=== PATIENT | female | born 1955 | race Caucasian/White ===

== ENCOUNTER 2016-04-27 15:43 | Observation (INO) ==
[2016-04-27] MEDS ORDERED: Aspirin 81 MG TAB.CHEW PO ONE (15:58)
[2016-04-27] MEDS ORDERED: Ipratropium/Albuterol Neb 3 ML IH ONE (15:58)
[2016-04-27] MEDS ORDERED: Nitroglycerin 0.4 MG TAB.SUBL SL STA (15:59)
--- NOTE | 2016-04-27 16:14 | Emergency Department Note ---
Disposition Clinical Impression: Chest pain Disposition: Admitted As Inpatient Condition: Good Referrals: José Curtis MD [Primary Care Provider] - Forms: ED Satisfaction Letter Chest Pain HPI - General Chief Complaint: ED Chest Pain Stated Complaint: chest pains Time Seen by Provider: 04/27/16 15:48 Source: patient Mode of arrival: ambulatory Limitations: no limitations Vital Signs Reviewed: Yes Nursing Notes Reviewed: Yes - History of Present Illness HPI Narrative: 61-year-old female presents with follow-up right-sided sharp chest pain that radiates to the right that was associated with doing chores today. She states that she has been having similar milder episodes over the last few days with [employer], but they have remitted with rest each time. Today, her symptoms did not remit despite rest so she took her sister's nitroglycerin tablet. This immediately remitted her symptoms, but they recurred after about 30 minutes so she came in for evaluation. In addition to the chest pain, she admits to shortness of breath increased over her baseline. She denies pleuritic symptoms. She does admit to COPD, but denies productive cough or wheezing significantly over her baseline. She admits to history of prior colon cancer, but denies cancer treatment at this time and states that she is in remission. She denies recent hospitalization or mobilization or travel. She denies hemoptysis. She denies known history of coronary artery disease, but denies prior heart catheter or stress test. Pt complaint: chest pain Severity scale (1-10): 7 - Related Data Home Medications Medication Instructions Recorded Confirmed Fluticasone Propionate Nasal 1 spray NS DAILY PRN #0 01/28/15 01/28/16 [Flonase] Tiotropium [Spiriva] 1 puff IH DAILY #0 01/28/15 01/28/16 Fluticasone/Salmeterol [Advair Hfa 1 puff IH BID PRN 03/06/15 01/28/16 115-21 Mcg Inhaler] Albuterol Sulfate [Proair Hfa] 2 puff IH Q4H PRN 01/28/16 01/28/16 Atorvastatin [Lipitor] 10 mg PO HS 01/28/16 01/28/16 Guaifenesin [Mucinex] 600 mg PO BID 01/28/16 01/28/16 Lisinopril/Hydrochlorothiazide 1 tab PO DAILY 01/28/16 01/28/16 [Zestoretic 10-12.5 mg Tablet] Loratadine [Allergy Relief] 10 mg PO DAILY 01/28/16 01/28/16 OxyCODONE/APAP [Percocet 1 tab PO Q6HR 01/28/16 01/28/16 [id number]] Ubidecarenone [Co Q10] 100 mg PO DAILY 01/28/16 01/28/16 Pantoprazole Sodium [Protonix] 40 mg PO DAILY 04/27/16 04/27/16 Previous Rx's Medication Instructions Recorded Docusate [Colace] 100 mg PO BID #60 capsule 03/11/15 Ipratropium/Albuterol Neb [Duoneb] 3 ml IH Q6HR #120 vial.neb 03/11/15 Allergies Allergy/AdvReac Type Severity Reaction Status Date / Time aspirin AdvReac Nausea Verified 01/28/15 10:52 hydrocodone [From Vicodin] AdvReac Vomiting Verified 01/28/15 10:52 All systems ED: reviewed and negative except as stated. Chest Pain PMH - Past Medical History Medical history: Reports: asthma, cancer, COPD, GERD, hypertension, seizures Surgical history: Reports: colectomy, hysterectomy Psychiatric history: Reports: no psych history - Social History Smoking Status: Current every day smoker Alcohol use: Reports: none Drug use: Reports: none Physical Exam - Head Head exam: atraumatic, normocephalic, normal inspection - Eye Eye exam: Present: normal appearance, PERRL, EOMI - ENT ENT exam: normal exam, normal oropharynx, mucous membranes moist - Neck Neck exam: Present: normal inspection, full ROM, trachea midline - Chest Chest inspection: Present: normal inspection, symmetric chest wall rise - Respiratory Mild diffuse wheezing with good air movement. No respiratory distress. Cardiovascular Cardiovascular exam: Present: regular rate, normal rhythm, normal heart sounds - Abdominal Exam Abdominal exam: Present: soft, Non-Tender. Absent: tenderness, distention, guarding, rebound, rigidity - Extremities Exam Extremities exam: Present: normal inspection, full ROM - Expanded Lower Extremity Exam Hip/Pelvis exam: Present: normal inspection, full ROM - Back Exam Back exam: Present: normal inspection, full ROM. Absent: tenderness, CVA tenderness (R), CVA tenderness (L) - Neurological Exam Neurological exam: Present: alert, oriented X3, CN II-XII intact - Psychiatric Psychiatric exam: Present: normal affect, normal mood - Skin Skin exam: Present: warm, dry, intact, normal color - General Limitations: no limitations General appearance: alert, anxious Course - Reevaluation(s) Reevaluation #1: Troponin is negative. D-dimer is negative. Patient is chest pain-free at this time, but given her very concerning story we will need to admit her for suspected unstable angina. Except by Dr. Ling. Time: 17:19 Vital Signs Temperature 97.2 F L 04/27/16 15:44 Pulse Rate 120 04/27/16 15:44 Respiratory Rate 24 04/27/16 15:44 Blood Pressure 128/80 04/27/16 15:44 O2 Sat by Pulse Oximetry 93 L 04/27/16 15:44 Temperature 97.2 F L 04/27/16 15:44 Pulse Rate 120 04/27/16 15:44 Respiratory Rate 24 04/27/16 15:44 Blood Pressure 128/80 04/27/16 15:44 O2 Sat by Pulse Oximetry 93 L 04/27/16 15:44 Oxygen Delivery Oxygen Delivery Room Air Chest Pain - Lab Data Lab results reviewed: Yes I reviewed the patient's lab results. Result diagrams: 04/27/16 16:15 04/27/16 16:15 Lab Results 04/27/16 04/27/16 04/27/16 Range/Units 16:15 16:15 16:15 WBC 12.0 H (4.3-11.1) K/mcL RBC 5.22 H (3.82-4.97) M/mcL Hgb 15.0 (11.5-15.4) g/dL Hct 48.2 H (35.3-44.9) % MCV 92.3 (83.0-100.0) fL MCH 28.7 (28.0-33.3) pg MCHC 31.1 L (31.6-35.5) g/dL RDW 15.2 H (11.5-14.5) % Plt Count 326 (140-400) K/mcL MPV 10.7 (9.4-12.4) fL Immature Gran % 0.8 (0-4) % Seg Neutrophils % 64.4 % Lymphocytes % 25.0 % Monocytes % 6.3 % Eosinophils % 2.8 % Basophils % 0.7 % Neutrophils # 7.7 (1.6-8.9) K/mcL Lymphocytes # 3.0 (0.6-4.6) K/mcL Monocytes # 0.8 (0.0-1.3) K/mcL Eosinophils # 0.3 (0.0-0.6) K/mcL Basophils # 0.1 (0.0-0.2) K/mcL D-Dimer (0-500) ng/mLFEU Sodium 139 (136-145) mEq/L Potassium 4.2 (3.5-4.5) mEq/L Chloride 101 (98-109) mEq/L Carbon Dioxide 27 (19-29) mEq/L BUN 11 (7-20) mg/dL Creatinine 0.87 (0.57-1.11) mg/dL Est GFR ( Amer) > 60 (> 60) Est GFR (Non-Af Amer) > 60 (> 60) BUN/Creatinine Ratio 13 (6-26) Glucose 90 (70-99) mg/dL Calculated Osmolality 287 (280-300) Calcium 9.8 (8.6-10.8) mg/dL Troponin I 0.00 (0-0.03) ng/mL 04/27/16 Range/Units 16:15 WBC (4.3-11.1) K/mcL RBC (3.82-4.97) M/mcL Hgb (11.5-15.4) g/dL Hct (35.3-44.9) % MCV (83.0-100.0) fL MCH (28.0-33.3) pg MCHC (31.6-35.5) g/dL RDW (11.5-14.5) % Plt Count (140-400) K/mcL MPV (9.4-12.4) fL Immature Gran % (0-4) % Seg Neutrophils % % Lymphocytes % % Monocytes % % Eosinophils % % Basophils % % Neutrophils # (1.6-8.9) K/mcL Lymphocytes # (0.6-4.6) K/mcL Monocytes # (0.0-1.3) K/mcL Eosinophils # (0.0-0.6) K/mcL Basophils # (0.0-0.2) K/mcL D-Dimer 268 (0-500) ng/mLFEU Sodium (136-145) mEq/L Potassium (3.5-4.5) mEq/L Chloride (98-109) mEq/L Carbon Dioxide (19-29) mEq/L BUN (7-20) mg/dL Creatinine (0.57-1.11) mg/dL Est GFR ( Amer) (> 60) Est GFR (Non-Af Amer) (> 60) BUN/Creatinine Ratio (6-26) Glucose (70-99) mg/dL Calculated Osmolality (280-300) Calcium (8.6-10.8) mg/dL Troponin I (0-0.03) ng/mL - EKG Data EKG attestation: Yes I reviewed and interpreted this EKG. EKG results narrative: Sinus tachycardia at 106 with normal axis and intervals. No ST elevation, but there is one box of ST depression in V3 and V4 and slight ST depression in V5. These changes are new compared with 09/11/2014. Posterior EKG was performed and does not show any elevation.
[2016-04-27 16:23] LABS: Basophils # 0.1 K/mcL (0.0-0.2); Basophils % 0.7 %; Eosinophils # 0.3 K/mcL (0.0-0.6); Eosinophils % 2.8 %; Hematocrit 48.2 % (35.3-44.9); Immature Granulocytes % 0.8 % (0-4); Mean Corpuscular HGB Conc 31.1 g/dL (31.6-35.5); Mean Corpuscular Hemoglobin 28.7 pg (28.0-33.3); Mean Corpuscular Volume 92.3 fL (83.0-100.0); Mean Platelet Volume 10.7 fL (9.4-12.4); Monocytes # 0.8 K/mcL (0.0-1.3); Monocytes % 6.3 %; Neutrophils # 7.7 K/mcL (1.6-8.9); Platelet Count 326 K/mcL (140-400); Red Blood Count 5.22 M/mcL (3.82-4.97); Red Cell Distribution Width 15.2 % (11.5-14.5); Segmented Neutrophils % 64.4 %
--- NOTE | 2016-04-27 16:31 | Emergency Department Note ---
Disposition Clinical Impression: Chest pain Disposition: Admitted As Inpatient Condition: Good General Adult HPI - General Chief complaint: ED Chest Pain Stated complaint: chest pains Time Seen by Provider: 04/27/16 15:48 Source: patient Mode of arrival: ambulatory Limitations: no limitations - History of Present Illness Pain Scale: 7 - Related Data Home Medications Medication Instructions Recorded Confirmed Fluticasone Propionate Nasal 1 spray NS DAILY PRN #0 01/28/15 04/27/16 [Flonase] Tiotropium [Spiriva] 1 puff IH DAILY #0 01/28/15 04/27/16 Fluticasone/Salmeterol [Advair Hfa 1 puff IH BID PRN 03/06/15 04/27/16 115-21 Mcg Inhaler] Albuterol Sulfate [Proair Hfa] 2 puff IH Q4H PRN 01/28/16 04/27/16 Atorvastatin [Lipitor] 10 mg PO HS 01/28/16 04/27/16 Guaifenesin [Mucinex] 600 mg PO BID 01/28/16 04/27/16 Lisinopril/Hydrochlorothiazide 1 tab PO DAILY 01/28/16 04/27/16 [Zestoretic 10-12.5 mg Tablet] Loratadine [Allergy Relief] 10 mg PO DAILY 01/28/16 04/27/16 OxyCODONE/APAP 10/325 [Percocet 1 tab PO TID PRN 01/28/16 04/27/16 10/325] Ubidecarenone [Co Q10] 100 mg PO DAILY 01/28/16 04/27/16 Pantoprazole Sodium [Protonix] 40 mg PO DAILY 04/27/16 04/27/16 Previous Rx's Medication Instructions Recorded Docusate [Colace] 100 mg PO BID #60 capsule 03/11/15 Ipratropium/Albuterol Neb [Duoneb] 3 ml IH Q6HR #120 vial.neb 03/11/15 Allergies Allergy/AdvReac Type Severity Reaction Status Date / Time aspirin AdvReac Nausea Verified 01/28/15 10:52 hydrocodone [From Vicodin] AdvReac Vomiting Verified 01/28/15 10:52 Past Medical History - Past Medical History Medical history: Reports: asthma, cancer, COPD, GERD, hypertension, seizures Surgical history: Reports: colectomy, hysterectomy Psychiatric history: Reports: no psych history - Social History Smoking Status: Current every day smoker Smokeless Tobacco Status: No Alcohol use: Reports: none Drug use: Reports: none Physical Exam - General Limitations: no limitations General appearance: alert, anxious Course - Reevaluation(s) Reevaluation #1: I saw the patient with the resident, Dr. Koch. The patient presents with chest discomfort that has been going on since . It is intermittent chest discomfort that comes on every time she exerts herself. It is associated with shortness of breath and diaphoresis and nausea. It goes away with rest. The frequency and intensity adhesive reproduction have been increasing. She notes it particularly bad over the last several days. That story sounds like unstable angina. Her EKG does not show ischemic changes at this time. During my evaluation she is pain-free. We are going to do a cardiac workup because that is what sounds like. We will also check for other possible issues. She will need to be admitted to the hospital. Time: 16:31 Vital Signs Temperature 97.2 F L 04/27/16 15:44 Pulse Rate 120 04/27/16 15:44 Respiratory Rate 24 04/27/16 15:44 Blood Pressure 128/80 04/27/16 15:44 O2 Sat by Pulse Oximetry 93 L 04/27/16 15:44 Temperature 98.0 F 04/27/16 19:32 Pulse Rate 93 04/27/16 19:32 Respiratory Rate 20 04/27/16 19:32 Blood Pressure 114/74 04/27/16 19:32 O2 Sat by Pulse Oximetry 94 L 04/27/16 19:32 Oxygen Delivery Oxygen Delivery Room Air Medical Decision Making - Lab Data Result diagrams: 04/27/16 16:15 04/27/16 16:15 Lab Results 04/27/16 04/27/16 04/27/16 Range/Units 16:15 16:15 16:15 WBC 12.0 H (4.3-11.1) K/mcL RBC 5.22 H (3.82-4.97) M/mcL Hgb 15.0 (11.5-15.4) g/dL Hct 48.2 H (35.3-44.9) % MCV 92.3 (83.0-100.0) fL MCH 28.7 (28.0-33.3) pg MCHC 31.1 L (31.6-35.5) g/dL RDW 15.2 H (11.5-14.5) % Plt Count 326 (140-400) K/mcL MPV 10.7 (9.4-12.4) fL Immature Gran % 0.8 (0-4) % Seg Neutrophils % 64.4 % Lymphocytes % 25.0 % Monocytes % 6.3 % Eosinophils % 2.8 % Basophils % 0.7 % Neutrophils # 7.7 (1.6-8.9) K/mcL Lymphocytes # 3.0 (0.6-4.6) K/mcL Monocytes # 0.8 (0.0-1.3) K/mcL Eosinophils # 0.3 (0.0-0.6) K/mcL Basophils # 0.1 (0.0-0.2) K/mcL D-Dimer (0-500) ng/mLFEU Sodium 139 (136-145) mEq/L Potassium 4.2 (3.5-4.5) mEq/L Chloride 101 (98-109) mEq/L Carbon Dioxide 27 (19-29) mEq/L BUN 11 (7-20) mg/dL Creatinine 0.87 (0.57-1.11) mg/dL Est GFR ( Amer) > 60 (> 60) Est GFR (Non-Af Amer) > 60 (> 60) BUN/Creatinine Ratio 13 (6-26) Glucose 90 (70-99) mg/dL Calculated Osmolality 287 (280-300) Calcium 9.8 (8.6-10.8) mg/dL Troponin I 0.00 (0-0.03) ng/mL 04/27/16 Range/Units 16:15 WBC (4.3-11.1) K/mcL RBC (3.82-4.97) M/mcL Hgb (11.5-15.4) g/dL Hct (35.3-44.9) % MCV (83.0-100.0) fL MCH (28.0-33.3) pg MCHC (31.6-35.5) g/dL RDW (11.5-14.5) % Plt Count (140-400) K/mcL MPV (9.4-12.4) fL Immature Gran % (0-4) % Seg Neutrophils % % Lymphocytes % % Monocytes % % Eosinophils % % Basophils % % Neutrophils # (1.6-8.9) K/mcL Lymphocytes # (0.6-4.6) K/mcL Monocytes # (0.0-1.3) K/mcL Eosinophils # (0.0-0.6) K/mcL Basophils # (0.0-0.2) K/mcL D-Dimer 268 (0-500) ng/mLFEU Sodium (136-145) mEq/L Potassium (3.5-4.5) mEq/L Chloride (98-109) mEq/L Carbon Dioxide (19-29) mEq/L BUN (7-20) mg/dL Creatinine (0.57-1.11) mg/dL Est GFR ( Amer) (> 60) Est GFR (Non-Af Amer) (> 60) BUN/Creatinine Ratio (6-26) Glucose (70-99) mg/dL Calculated Osmolality (280-300) Calcium (8.6-10.8) mg/dL Troponin I (0-0.03) ng/mL Attestation Statement - Attestation Attestation: I, Dr. Menon, examined this patient [id number] and my medical decision- making was reviewed with Dr. Koch, Resident Physician. I agree with the documented findings, disposition and treatment plan as described except to the extent set forth below. Please see my progress notes for details.
[2016-04-27 16:34] LABS: BUN/Creatinine Ratio 13 (6-26); Blood Urea Nitrogen 11 mg/dL (7-20); Calcium 9.8 mg/dL (8.6-10.8); Carbon Dioxide 27 mEq/L (19-29); Chloride 101 mEq/L (98-109); Glucose 90 mg/dL (70-99); Osmolality,Calculated 287 (280-300); Potassium 4.2 mEq/L (3.5-4.5); Sodium 139 mEq/L (136-145); eGFR For African Americans > 60 (> 60); eGFR For Non-African Americans > 60 (> 60)
[2016-04-27] MEDS ORDERED: Naloxone 0.4 MG/ML INJ IVP PRN (19:48)
[2016-04-27] MEDS ORDERED: Ondansetron 4 MG/2 ML VIAL IVP PRN (19:48)
[2016-04-27] MEDS ORDERED: Acetaminophen 325 MG TABLET PO PRN (19:48)
[2016-04-27] MEDS ORDERED: Nitroglycerin 0.4 MG TAB.SUBL SL PRN (19:52)
[2016-04-27] MEDS ORDERED: *HR* OxyCODONE/APAP 10/325 TABLET PO PRN (19:53)
[2016-04-27] MEDS ORDERED: Fluticasone Propionate Nasal 50 MCG/SPRAY BOTTLE NS PRN (19:53)
--- NOTE | 2016-04-27 20:49 | Internal Med History&Physical ---
<Zoraida Beard - Last Filed: 04/27/16 20:41> Date of Encounter: 04/27/16 Time of Encounter: 20:00 Assessment and Plan (1) Chest pain Status: Acute 1 patient has been experiencing chest pain on exertion relieved by rest and nitroglycerin. First cardiac troponin was negative we will continue to cycle troponins. 2 nitroglycerin and oxygen as needed, aspirin statin beta billie 3 continuous cardiac monitoring 4 obtain lipid profile as well as TSH 5 nothing by mouth after midnight-pharmacological cardiac stress 6 cardiac echo 7 consult cardiology as needed Qualifiers: Ischemic chest pain type: unstable angina pectoris Qualified Code(s): I20.0 - Unstable angina (2) Tobacco abuse Status: Acute 1 patient smokes half a pack cigarettes a day history of COPD with oxygen use encouraged patient to stop smoking and offered nicotine patch which patient declined (3) COPD (chronic obstructive pulmonary disease) Status: Chronic 1 history of COPD with oxygen use at night-we will continue with oxygen and maintain SPO2 greater than 92% 2 no exacerbation at this time-we will continue with bronchodilators Qualifiers: COPD type: unspecified COPD Qualified Code(s): J44.9 - Chronic obstructive pulmonary disease, unspecified (4) DVT prophylaxis Status: Acute 1 NELLIE hose and encourage early ambulation Internal Medicine - H&P: HPI Chief complaint: CP Admitted From: Home Plans for Post Hospital Care: Home History of present illness: Ms. Buchanan is a 61 year old female with a past medical history of COPD with oxygen use hyperlipidemia colon cancer GERD. According to the patient she has been experiencing chest pain since Tuesday. She describes the pain as gas-like midsternal radiates to back and down right arm. Associated symptoms are diaphoresis nausea shortness of breath the pain is aggravated by exertion and relieved with rest. She denies any fevers chills vomiting diarrhea abdominal pain. Today the patient continues to have chest pain on exertion she went to the grocery store and was unable to complete her shopping due to chest pain shortness of breath. She went home and called her sister and asked for nitroglycerin she took a nitroglycerin which immediately relieved her symptoms. However they reoccurred after about 30 minutes she came to the ER for evaluation in the ER first set of cardiac troponins are negative EKG sinus tach with some nonspecific ST changes chest x-ray no acute process the rest of her lab work is unremarkable. She was admitted for further workup and evaluation. Upon assessment patient denies any chest pain or shortness of breath at this time. The patient does state that she has had several family members with a history of coronary artery disease. She denies any past cardiac history and has not had a stress test or cardiac catheter in the past. I reviewed the case with Dr Rodrigues who agrees with plan Past Med Surg Social Fam HX - Past Medical History Medical history: asthma, cancer, COPD, GERD, hypertension, seizures Psychiatric history: no psych history - Past Surgical History Surgical History: colectomy, hysterectomy - Social History Smoking Status: Current every day smoker Smokeless Tobacco Status: No Alcohol use: none Drug use: none - Family History Mother Adopted: No Family Member Ethnicity: Non- Living Status: Still Living Hx Family Cardiac Disorders: Yes (open heart) Hx Family Respiratory Disorders: Yes Hx Family Cancer: No Hx Family GI Disorders: No Hx Family Endocrine Disorder: No Hx Family Neuromuscular Disorders: No Hx Family Neurologic Disorders: Yes Hx Family HEENT Disorders: No Hx Family Autoimmune Disorders: No Internal Medicine - H&P: Meds Fluticasone Propionate Nasal [Flonase] 1 spray NS DAILY PRN #0 01/28/15 [ History] Tiotropium [Spiriva] 1 puff IH DAILY #0 01/28/15 [History] Fluticasone/Salmeterol [Advair Hfa 115-21 Mcg Inhaler] 1 puff IH BID PRN [History] Docusate [Colace] 100 mg PO BID #60 capsule 03/11/15 [Rx] Ipratropium/Albuterol Neb [Duoneb] 3 ml IH Q6HR #120 vial.neb 03/11/15 [Rx] Albuterol Sulfate [Proair Hfa] 2 puff IH Q4H PRN 01/28/16 [History] Atorvastatin [Lipitor] 10 mg PO HS 01/28/16 [History] Guaifenesin [Mucinex] 600 mg PO BID 01/28/16 [History] Lisinopril/Hydrochlorothiazide [Zestoretic 10-12.5 mg Tablet] 1 tab PO DAILY [History] Loratadine [Allergy Relief] 10 mg PO DAILY 01/28/16 [History] OxyCODONE/APAP 10/325 [Percocet 10/325] 1 tab PO TID PRN 01/28/16 [History] Ubidecarenone [Co Q10] 100 mg PO DAILY 01/28/16 [History] Pantoprazole Sodium [Protonix] 40 mg PO DAILY 04/27/16 [History] Atorvastatin [Lipitor] 40 mg PO HS #30 tablet 04/28/16 [Rx] Allergies aspirin Adverse Reaction (Verified 01/28/15 10:52) Nausea hydrocodone [From Vicodin] Adverse Reaction (Verified 01/28/15 10:52) Vomiting All Systems PM: A 10-system review of systems was performed and is negative for pertinent findings except as documented above in the HPI. - Constitutional Constitutional: no chills, no fever(s), no night sweats - Cardiovascular Cardiovascular ROS IM: chest pain, dyspnea on exertion - Respiratory Respiratory: dyspnea on exertion - Gastrointestinal Gastrointestinal: nausea - Genitourinary Genitourinary: no change in urinary stream, no dysuria, no flank pain, no hematuria - Musculoskeletal Musculoskeletal ROS IM: no numbness, no tingling - Neurological Neurological ROS: no confusion, no convulsions, no focal weakness, no numbness, no tingling, no tremor(s) - Constitutional Vitals: Temp Pulse Resp BP Pulse Ox 98.0 F 93 20 114/74 94 L 04/27/16 19:32 04/27/16 19:32 04/27/16 19:32 04/27/16 19:32 04/27/16 19:32 General appearance: Present: answers questions appropriately - Head Head exam: Present: atraumatic, normocephalic - Neck Neck exam general surgery: Present: supple, trachea midline. Absent: lymphadenopathy - Respiratory Respiratory exam: Present: wheezes. Absent: accessory muscle use, rales, rhonchi Additional comments: Faint expiratory wheeze - Cardiovascular Cardiovascular exam: Present: RRR, +S1, +S2. Absent: diastolic murmur, gallop, rubs, systolic murmur - GI/Abdominal GI/Abdominal exam: Present: normal bowel sounds, soft, no peritoneal signs. Absent: distended, tenderness - Extremities Exam Extremities exam: Present: warm, radial pulses palpable and symetrical. Absent : calf tenderness, cyanotic, pedal edema - Neurological Exam Neurological exam: Present: CN II-XII intact, oriented X3, no focal deficits. Absent: pronater drift, facial droop, speech deficit Internal Med - H&P Results - Labs CBC & Chem 7: 04/27/16 16:15 04/27/16 16:15 - EKG Data EKG shows normal: sinus rhythm, ST-T waves - Impressions No ST elevation nonspecific ST changes, reviewed with Dr Rodrigues - Diagnostic Studies Chest x-ray Additional comments: per radiology read no acute process - VTE Reasons for not Prescribing Prophylaxis: Treatment not Indicated - Low risk for VTE <Anselmo Rodrigues - Last Filed: 04/29/16 11:20> Date of Encounter: 04/27/16 Internal Medicine - H&P: HPI History of present illness: Ms. Buchanan is a 61 year old female All Systems PM: A 10-system review of systems was performed and is negative for pertinent findings except as documented above in the HPI. - Constitutional Vitals: Temp Pulse Resp BP Pulse Ox 98.0 F 76 18 114/76 95 04/28/16 14:44 04/28/16 14:44 04/28/16 15:40 04/28/16 14:44 04/28/16 15:40 Internal Med - H&P Results - Labs CBC & Chem 7: 04/28/16 04:14 04/28/16 04:14 - Attending Attestation Medical decision-making was reviewed with the REAL ESTATE LOAN OFFICER and agree with the treatment plan
[2016-04-27] MEDS ORDERED: Budesonide/Formoterol 80/4.5 MDI IH SCH (21:00)
[2016-04-27] MEDS: Ipratropium/Albuterol Neb 3 ML IH SCH (23:04)
[2016-04-28] MEDS: Ipratropium/Albuterol Neb 3 ML IH SCH ×3 (04:19→15:40)
[2016-04-28 05:52] LABS: Basophils # 0.1 K/mcL (0.0-0.2); Basophils % 0.9 %; Eosinophils # 0.4 K/mcL (0.0-0.6); Eosinophils % 3.9 %; Hematocrit 47.2 % (35.3-44.9); Immature Granulocytes % 0.6 % (0-4); Lymphocytes # 3.8 K/mcL (0.6-4.6); Lymphocytes % 38.3 %; Mean Corpuscular HGB Conc 29.7 g/dL (31.6-35.5); Mean Corpuscular Hemoglobin 28.1 pg (28.0-33.3); Mean Corpuscular Volume 94.8 fL (83.0-100.0); Mean Platelet Volume 11.6 fL (9.4-12.4); Monocytes # 0.7 K/mcL (0.0-1.3); Monocytes % 6.8 %; Neutrophils # 4.9 K/mcL (1.6-8.9); Platelet Count 330 K/mcL (140-400); Red Blood Count 4.98 M/mcL (3.82-4.97); Red Cell Distribution Width 15.6 % (11.5-14.5); Segmented Neutrophils % 49.5 %
[2016-04-28 06:12] LABS: Chol/HDL Ratio 6.8 (0-4.9)
[2016-04-28 06:13] LABS: BUN/Creatinine Ratio 16 (6-26); Blood Urea Nitrogen 14 mg/dL (7-20); Calcium 9.3 mg/dL (8.6-10.8); Carbon Dioxide 28 mEq/L (19-29); Chloride 100 mEq/L (98-109); Glucose 103 mg/dL (70-99); Osmolality,Calculated 291 (280-300); Potassium 3.5 mEq/L (3.5-4.5); Sodium 140 mEq/L (136-145); eGFR For African Americans > 60 (> 60); eGFR For Non-African Americans > 60 (> 60)
[2016-04-28 06:27] LABS: Thyroid Stimulating Hormone 3.372 mcIU/mL (0.350-4.840)
[2016-04-28] MEDS ORDERED: Regadenoson 0.4 MG/5 ML SYRINGE IVP ONE (06:31)
[2016-04-28] MEDS ORDERED: UBIDECARENONE 100 MG PO SCH (09:00)
[2016-04-28] MEDS ORDERED: Loratadine 10 MG TABLET PO SCH (09:00)
[2016-04-28] MEDS ORDERED: Aspirin 81 MG TAB.CHEW PO SCH (09:00)
--- NOTE | 2016-04-28 10:25 | Electrocardiograph Report ---
[facility] Test Date: 2016-04-27 Pat Name: Teena Buchanan Department: 104 Room: 3B23 Gender: F Youth Minister: : 1955 Requested By: Wicho Koch Order Number: [id number] Reading MD: Giovanni Mercado MD Measurements Intervals [place] Rate: 106 P: 72 MS: 134 QRS: 54 QRSD: 82 T: 66 QT: 308 QTc: 370 Interpretive Statements SINUS TACHYCARDIA NONSPECIFIC ST \T\ T-WAVE ABNORMALITY Electronically Signed On 04-28-16 10:24:40 EST by Giovanni Mercado MD
--- NOTE | 2016-04-28 10:27 | Electrocardiograph Report ---
[facility] Test Date: 2016-04-27 Pat Name: Teena Buchanan Department: 104 Room: 3B23 Gender: F Die Casting Machine Setter: MARLENY : 1955 Requested By: Wicho Koch Order Number: [id number] Reading MD: Giovanni Mercado MD Measurements Intervals [place] Rate: 106 P: 66 [place]: 124 QRS: 53 QRSD: 85 T: 64 QT: 306 QTc: 368 Interpretive Statements SINUS TACHYCARDIA POOR R WAVE PROGRESSION Electronically Signed On 04-28-16 10:26:28 EST by Giovanni Mercado MD
--- NOTE | 2016-04-28 11:47 | Nuclear Medicine Stress Report ---
Regadenoson Nuclear Stress Name: Teena Buchanan Date of Study: 04/28/2016 Date: 1955 Ht: 60.0 in Medical Record#: [id number] Age: 61 Wt: 218.0 lb Gender: Female Order #: [id number] Location: [facility] Room: [facility] Supervising Provider: Micah Bartlett CNP Reading Physician: Omid Roth DO, JANNETH WELLS FASNC Ordering Physician: Penny Sibley CNP Primary Care Physician: José Curtis MD Stress Technologist: Yoli Do PROSTHETIC ASSISTANT, CCT Polisher Implant: Emmanuel La Indications: Chest Pain Impression: Pharmacologic stress ECG is negative for ischemia at level of heart rate achieved. Gated EF > 70%. Perfusion imaging was negative for ischemia or infarct. History: History of Smoking Stress Test Summary: Stress Test Type: Pharmacologic Regadenoson 0.4mg/5ml given IV Baseline Information: Initial Heart Rate: 69 Blood Pressure: 110/72 Stress Information: Test Terminated Due to (primary): As per protocol Maximum Blood Pressure: 118/64 Maximum Heart Rate: 104 Percent Maximum Heart Rate Achieved: 68 Double Product: [id number] METS Reached: 1 Symptoms: No chest symptoms Nuclear Summary: SPECT myocardial perfusion imaging using Tc99m Sestamibi given intravenously was performed at rest and following cardiac stress testing. The resting images were obtained following initial dose of 10.7 mCi. Following stress an additional dose of 32.2 mCi was given at peak exercise or 30 seconds post regadenoson infusion. Medication Given: Time Medication Dose Units Route Findings: Stress Note * Resting ECG demonstrated normal sinus rhythm. * No baseline arrhythmias were noted. * Pharmacologic stress ECG is negative for ischemia at level of heart rate achieved. * No arrhythmias were noted during stress. * Patient had no chest pain during stress. * Normal hemodynamic responses to pharmacologic stress. Study Quality * Study quality is average. Gated EF > 70% * Gated EF > 70%. Left Ventricle * The left ventricle is not dilated. LVEDV = 53 mL. NORMALS * Normal wall motion. * Normal segmental perfusion in stress. * Normal Segmental Perfusion in rest. TID * No evidence of transient ischemic dilatation. TID ratio = 1.09. Lung Uptake * There is no evidence of increase lung uptake. Updated by Omid Roth DO, FACJoselo, JANNETH, FASROSENDO on 04/28/2016 11:40:00 AM electronically signed on 04/28/2016 11:40:46 AM with status of Final
[2016-04-28] MEDS ORDERED: Perflutren Lipid Microsphere 1.3 ML in 0.9 % Sodium Chloride 8.7 ML IVP ONE (13:11)
[2016-04-28 14:46] VITALS: BP 114/76
--- NOTE | 2016-04-28 14:47 | ECHO - Doppler Report ---
Echo with Imaging Enhancement Agent Name: Teena Buchanan Date of Study: 04/28/2016 Date: 1955 Ht: 60.0 in Medical Record#: [id number] Age: 61 Wt: 173.0 lb Gender: Female BSA: 1.76 Order #: [id number] Location: [facility] Room #: [facility] Reading Physician: Omid Roth DO, RUSSELL, KATIE LAGUNAS Cake Press Operator Helper: Pablito Whittaker RDCS Ordering Physician: Zoraida Beard CNP Primary Physician: José Curtis MD Indications: Chest pain Impressions: LVEF 60-65%. Normal LV chamber size, wall thickness and function. Mild left ventricular diastolic dysfunction. Normal right ventricular structure and function. Unable to estimate RVSP due to lack of TR jet. No significant valvular dysfunction. Left Ventricular Wall Motion: Rest Echo Findings All wall segments showed normal motion. Findings: Study Quality * Technically adequate exam. ECG Findings * Normal sinus rhythm. Left Ventricle * LVEF 60-65%. * Normal LV chamber size, wall thickness and function. * Mild left ventricular diastolic dysfunction. Right Ventricle * Normal right ventricular structure and function. Left Atrium * Mildly dilated left atrium. Right Atrium * Normal right atrial size. Interatrial Septum * Interatrial septum not well evaluated. Aortic Valve * Aortic valve not well visualized. * No aortic regurgitation. * No aortic stenosis. Mitral Valve * Normal mitral valve structure and function. * No mitral regurgitation. * No mitral stenosis. Tricuspid Valve * Normal tricuspid valve structure and function. * Trace tricuspid regurgitation. * Unable to estimate RVSP due to lack of TR jet. Pulmonic Valve * Pulmonic valve is not well visualized. Aorta * Normally sized aortic root. Pericardium * The pericardium appears normal. IVC * Normal IVC dimensions and inspiratory collapse. Pulmonary Artery * Normal visualized portions of the main pulmonary artery. History Hypercholesteremia History of Smoking Years 44 Packs 0.5 Family History of CAD Contrast: Definity 1.3 ml in 8.7 ml of saline 2 ml. Measurements: BP: 129/ 82 2D Normal Values RVIDd: 2.11 cm <2.7 cm IVSd: .81 cm 0.6 - 1.0 cm LVIDd: 4.83 cm 3.7 - 5.6 cm LVPWd: .81 cm 0.6 - 1.1 cm LVIDs: 3.53 cm 1.5 - 3.6 cm AO: 2.40 cm < 4.0 cm LA: 3.50 cm 2.0 - 4.0cm %FS: 26.90 cm >25 % LA volume: 36 Mitral Valve Peak E:.63 m/sec Peak A:.81 m/sec E/A Ratio:0.8 Peak E' Lat Kodak:9.36 cm/s Peak E' Med Kodak:9.46 cm/s E/E' Lat Ratio:6.7 E/E' Med Ratio:6.7 Tricuspid Valve TV Regurg Peak Grad: 9.00mmHg TV Regurg Peak Kodak: 1.46m/sec Updated by Omid Roth DO, RUSSELL, JANNETH, KATIE on 04/28/2016 2:39:24 PM electronically signed on 04/28/2016 2:42:44 PM with status of Final Wall Motion Baez: 1=Normal, 2=Hypokinesis, 3=Akinesis, 4=Dyskinesis, 5=Aneurysmal, 6=Hyperkinetic, X=Not Visualized (Blank)=Missing
--- NOTE | 2016-04-28 15:31 | Discharge Summary ---
Date of Encounter: 04/28/16 Time of Encounter: 15:15 - Discharge Diagnosis (1) Chest pain Priority: Primary Status: Resolved Comments: Patient denied chest pain on day of discharge. Chest x-ray negative. Troponins negative. Stress test negative. Echocardiogram unremarkable. ACS rule out. Pain was reproducible with palpation worsened with movement, consistent with musculoskeletal etiology. Follow-up outpatient. Qualifiers: Ischemic chest pain type: unstable angina pectoris Qualified Code(s): I20.0 - Unstable angina (2) Chronic respiratory failure Priority: Secondary Status: Chronic Comments: No increased need for oxygenation while admitted. 2 L per nasal cannula continuously consistent with baseline requirement (3) Hyperlipidemia Priority: Secondary Status: Chronic Comments: Hyperlipidemia noted, will increase statin dosage and recommended low- cholesterol diet Qualifiers: Hyperlipidemia type: unspecified Qualified Code(s): E78.5 - Hyperlipidemia , unspecified (4) DVT prophylaxis Priority: Primary Status: Acute Comments: Observation patient. Up ad ramos. (5) Tobacco abuse Priority: Secondary Status: Chronic Comments: Declined smoking cessation counseling (6) COPD (chronic obstructive pulmonary disease) Priority: Secondary Status: Chronic Comments: No acute exacerbation, follow-up outpatient. Qualifiers: COPD type: unspecified COPD Qualified Code(s): J44.9 - Chronic obstructive pulmonary disease, unspecified (7) Obesity (BMI 30.0-34.9) Priority: Secondary Status: Chronic - Discharge Medications Prescriptions: Atorvastatin [Lipitor] 40 mg PO HS #30 tablet Home Medications: Fluticasone Propionate Nasal [Flonase] 1 spray NS DAILY PRN #0 01/28/15 [ History] Tiotropium [Spiriva] 1 puff IH DAILY #0 01/28/15 [History] Fluticasone/Salmeterol [Advair Hfa 115-21 Mcg Inhaler] 1 puff IH BID PRN [History] Docusate [Colace] 100 mg PO BID #60 capsule 03/11/15 [Rx] Ipratropium/Albuterol Neb [Duoneb] 3 ml IH Q6HR #120 vial.neb 03/11/15 [Rx] Albuterol Sulfate [Proair Hfa] 2 puff IH Q4H PRN 01/28/16 [History] Atorvastatin [Lipitor] 10 mg PO HS 01/28/16 [History] Guaifenesin [Mucinex] 600 mg PO BID 01/28/16 [History] Lisinopril/Hydrochlorothiazide [Zestoretic 10-12.5 mg Tablet] 1 tab PO DAILY [History] Loratadine [Allergy Relief] 10 mg PO DAILY 01/28/16 [History] OxyCODONE/APAP 10/325 [Percocet 10/325] 1 tab PO TID PRN 01/28/16 [History] Ubidecarenone [Co Q10] 100 mg PO DAILY 01/28/16 [History] Pantoprazole Sodium [Protonix] 40 mg PO DAILY 04/27/16 [History] Atorvastatin [Lipitor] 40 mg PO HS #30 tablet 04/28/16 [Rx] Allergies/Adverse Reactions: Allergies aspirin Adverse Reaction (Verified 01/28/15 10:52) Nausea hydrocodone [From Vicodin] Adverse Reaction (Verified 01/28/15 10:52) Vomiting Procedures/tests Complete & Pending: Procedures Performed prior 72 hours Category Date Time Status NM raven perf SPECT multi [NM] Routine Exams 04/27/16 20:35 Taken EV echocardiogram w enhance Routine Y 04/28/16 19:59 Completed SP pharm nuclear stress Routine Y 04/28/16 08:01 Completed Date of admission: 04/27/16 18:11 Primary care physician: José Curtis MD Discharging clinician: Penny Sibley Anticipated date of discharge: 04/28/16 - Patient Status Disposition: Home, Self-Care Condition: Good Functional capacity at discharge: independent ambulation Overall status at discharge: patient is back to baseline - Discharge Instructions Follow Up With: José Curtis MD [Primary Care Provider] - 05/04/16 2:30 pm Additional Instructions: Follow-up with primary care provider as scheduled - Diet and Activity Activity: increase activity as tolerated Diet: low fat, low cholesterol Hospital course: Ms. Buchanan is a 61 year old female with past medical history of COPD on 2 L per nasal cannula continuously at home, hyperlipidemia, colon cancer status post colectomy, GERD, tobacco abuse. Patient presented to the emergency department chief complaint chest pain 4 days. Patient described the pain as gas-like and midsternally located that radiated to her back and down her right arm. Associated symptoms include diaphoresis, nausea, shortness of breath. Patient stated the pain was aggravated with exertion and relieved with rest. Patient denied fevers, chills, vomiting diarrhea or abdominal pain. Patient say nitroglycerin resolved her symptoms within they recurred approximately 30 minutes after she took the medication. Workup in the emergency department unremarkable. No ECG changes. Troponins negative. Chest x-ray negative. Patient was admitted to the hospitalist service for further evaluation and management. Echocardiogram unremarkable with ejection fraction of 60-65% with mild diastolic dysfunction. Patient was euvolemic on examination taught this admission and denied chest pain or shortness of breath about this admission. She had a nuclear stress test was negative as well. ACS ruled out. Regarding risk factor stratification, patient declined smoking cessation counseling, blood pressure well controlled. Hyperlipidemia noted in here statin dosage was increased. Possible causes of her pain include esophageal spasm however she is on Protonix daily and endorses compliance also musculoskeletal etiology given that her pain was worsened with movement and touch. She was discharged home in stable condition with close outpatient follow-up recommended. ITS Impressions Chest X-Ray 04/27/16 15:57 IMPRESSION: No acute cardiopulmonary process. D/ / 04/27/2016 17:21:38 José Pringle MD / Adriane Pelaez Interpreting Provider: José Pringle MD Echocardiogram with imaging enhancement agent impressions: LVEF 60-65%. Normal LV chamber size, wall thickness and function. Mild left ventricular diastolic dysfunction. Normal respiratory ventricular structure and function. Unable to estimate RVSP due to lack of TR jet. No significant valvular dysfunction. Nuclear stress test impression: Pharmacologic stress ECG is negative for ischemia at level of heart rate achieved. Gated ejection fraction greater than 70%. Perfusion imaging was negative for ischemia or infarct. - Time Spent with Patient Total time spent providing and/or coordinating discharge services: - Constitutional Vitals: Temp Pulse Resp BP Pulse Ox 98.0 F 76 16 114/76 93 L 04/28/16 14:44 04/28/16 14:44 04/28/16 14:44 04/28/16 14:44 04/28/16 14:44 General appearance: Present: A&O X 3, pleasant, no acute distress, obese, answers questions appropriately - Head Head exam: Present: atraumatic, normocephalic - Eye Eye exam: Present: PERRL, conjuntiva pink, sclera anicteric Pupils: Present: PERRL - Neck Neck exam general surgery: Present: supple, trachea midline. Absent: lymphadenopathy - Respiratory Respiratory exam: Present: decreased breath sounds. Absent: accessory muscle use, rales, respiratory distress, rhonchi, wheezes - Cardiovascular Cardiovascular exam: Present: RRR, +S1, +S2. Absent: diastolic murmur, gallop, rubs, systolic murmur - GI/Abdominal GI/Abdominal exam: Present: normal bowel sounds, soft, no peritoneal signs. Absent: distended, tenderness - Extremities Exam Extremities exam: Present: warm, radial pulses palpable and symetrical. Absent : calf tenderness, cyanotic, pedal edema - Neurological Exam Neurological exam: Present: alert, CN II-XII intact, normal gait, oriented X3, no focal deficits, strengths equal and symetr throughout. Absent: pronater drift, facial droop, speech deficit - Skin Skin exam: Present: dry, intact, normal color, warm - VTE Reasons for not Prescribing Prophylaxis: Treatment not Indicated - Low risk for VTE
== END 2016-04-28 17:52 | disposition home or self-care (01) ==
LOC: EMEROO 15:43 → 3BNU 15:43
PROVIDERS: ADMIT Nurse Practitioner Acute Care; ATTEND Nurse Practitioner Family